=== PATIENT | male | born 2000 | race Caucasian/White ===

== ENCOUNTER 2023-05-06 13:02 | Emergency (ER) | payer BC, SELFPAY ==
[2023-05-06 13:14] VITALS: BP 138/78; PULSE 82; RESP 14; TEMP 36.5; O2SAT 96; BMI 24.3
--- NOTE | 2023-05-06 13:33 | ED_ITS ---
HPI - Skin/Abscess/Foreign Bdy General Chief complaint: Skin/Abscess/Foreign Body Stated complaint: Chest/stomach rash Time Seen by Provider: 05/06/23 13:22 History of Present Illness HPI narrative: This 22-year-old male comes in with pruritic lesions around his navel and a few spots on the left side of his face. He recently returned to [facility] and states that he pulled out his linens from last spring and suspects that there was some mites or chiggers in his linens that caused intense itching. He was scratching around his navel and has excoriations but no erythema spreading out from this area. He does not report any fevers. His primary symptom is itch but he states that he did have some purulent fluid that he cleared from his navel. He does not report any abdominal pain. Is no sign of abscess or drainage currently. Related Data Previous Rx's Medication Instructions Recorded cephalexin 500 mg capsule 500 mg PO TID #15 caps 05/06/23 triamcinolone acetonide 0.1 % 1 applic topical BID #15 grams 05/06/23 topical cream Allergies Allergy/AdvReac Type Severity Reaction Status Date / Time No Known Drug Allergies Allergy Verified 05/06/23 13:14 Review of Systems Status of ROS: Reports: 10 or more systems reviewed and unremarkable except as noted in History and below Narrative: Constitutional: No fevers, no weight gain or loss. Eyes: No discharge. No vision changes. HENT: No congestion, no sore throat, no ear pain. Cardiovascular: No chest pain, no palpitations. Respiratory: No shortness of breath, no wheezes, no cough. Gastrointestinal: No abdominal pain, no vomiting, no diarrhea. Genitourinary: No dysuria, no hematuria. Musculoskeletal: Normal range of motion. Skin: Excoriations around his navel and 2 spots on the left side of his face. Neurological: No dizziness, weakness, sensory change, speech change. Endo/Heme/Allergies: No bruising or bleeding. No polydipsia. Pysch: no suicidality, no anxiety, no insomnia. All other systems reviewed and are negative. Exam Narrative: Exam Narrative: Constitutional: Well-developed, well-nourished, no acute distress. HEENT: Normocephalic, atraumatic. Neck: Normal range of motion. Nontender. Supple. Heart: Regular. No murmurs. Normal rate. Intact distal pulses. Lungs: Clear to auscultation. No chest discomfort. No wheezes, rhonchi, or rales. Abdomen: Normal bowel sounds. Nontender. No rebound tenderness. Genitalia: Deferred. Back: No midline tenderness. Normal range of motion. Extremities: Normal range of motion. No injury. Skin: Excoriations from intense scratching around his navel. There is no surrounding erythema and no sign of discharge. The left side of his face on his cheek has 2 small areas where he excoriated his skin. Neurologic: No altered sensation. No weakness. Alert and oriented. Psychiatric: No suicidality. No anxiety or depression. No insomnia. Nursing notes and vitals signs are reviewed. Const: Vital Signs, click to edit/add: Vital Signs - 24 hr 05/06/23 13:14 Temperature 97.7 F Pulse Rate [Pulse Oximeter] 82 Respiratory Rate 14 Blood Pressure [Ri ght Upper Arm] 138/78 Pulse Oximetry 96 Oxygen Delivery Me thod Room Air Course Vital Signs Vital signs: Initial Vital Signs Temperature 97.7 F 05/06/23 13:14 Temperature Source Temporal Artery Scan 05/06/23 13:14 Pulse Rate 82 05/06/23 13:14 Respiratory Rate 14 05/06/23 13:14 Blood Pressure 138/78 05/06/23 13:14 Blood Pressure Mean 98 05/06/23 13:14 Blood Pressure Position Sitting 05/06/23 13:14 Pulse Oximetry 96 05/06/23 13:14 Oxygen Delivery Method Room Air 05/06/23 13:14 Vital Signs Temperature 97.7 F 05/06/23 13:14 Pulse Rate 82 05/06/23 13:14 Respiratory Rate 14 05/06/23 13:14 Blood Pressure 138/78 05/06/23 13:14 Pulse Oximetry 96 05/06/23 13:14 Oxygen Delivery Method Room Air 05/06/23 13:14 Temperature 97.7 F 05/06/23 13:14 Pulse Rate 82 05/06/23 13:14 Respiratory Rate 14 05/06/23 13:14 Blood Pressure 138/78 05/06/23 13:14 Pulse Oximetry 96 05/06/23 13:14 Oxygen Delivery Method Room Air 05/06/23 13:14 MDM - Skin/Abscess/Foreign Bdy MDM Narrative Medical decision making narrative: This patient presents with pruritic rash on his navel area and on the left side of his face. This was intensely itchy and he has been scratching vigorously causing skin breakdown. He does report some purulent discharge but there is none currently. There is not surrounding warmth or erythema typical of a cellulitis. There may have been some type of might in his bed clothing that triggered this. He is otherwise in good health. There is some suspicion of infection secondary to his intense scratching so a prescription for Keflex is provided. He also received a prescription for triamcinolone cream to attend to the pruritus. Discharge Plan Discharge Clinical Impression: Urticaria Patient Disposition: Home, Self-Care Condition: Unchanged Additional Instructions: Use medications as prescribed. Activity as tolerated. Follow up with MD return if worsening. Prescriptions: New triamcinolone acetonide 0.1 % cream 1 applic topical BID Qty: 15 0RF cephalexin 500 mg capsule 500 mg PO TID Qty: 15 0RF Stand Alone Forms: [employer] Info Instructions
== END 2023-05-06 14:07 | disposition home or self-care (01) ==
LOC: ED 13:59
PROVIDERS: Emergency Provider Emergency Medicine Emergency Medical Services
DX: L50.9 Urticaria, unspecified (principal)
CPT/HCPCS: 99283; 99284